=== PATIENT | male | born 1975 | race Caucasian/White ===

== ENCOUNTER 2016-12-30 15:09 | Emergency (ER) | payer MEDICARE, MEDICAID ==
[2016-12-30 15:39] VITALS: BP 136/69
[2016-12-30 16:38] LABS: CHLORIDE,CL 106 mmol/L (98-110); SODIUM,NA 138 mmol/L (136-146)
--- NOTE | 2016-12-30 17:46 | EDM.PDOC ---
ED HPI GENERAL MEDICAL PROBLEM - General Chief Complaint: Cardiovascular Problem Stated Complaint: HEART MONITOR Time Seen by Provider: 12/30/16 15:45 Source of Information: Reports: Patient History Limitations: Reports: No Limitations - History of Present Illness INITIAL COMMENTS - FREE TEXT/NARRATIVE: HISTORY AND PHYSICAL: History of present illness: [31-year-old male with a history of a previous code and an anoxic brain injury who walks with a walker because of his severe disability now presents emergency department to see if his pacemaker defibrillator is working. She is under the care of the food management aide Dr. oneil in [place]. Patient states that his pacemaker has been beeping but he has not been shocked recently. He was concerned that it might not be working since it's been beeping and he has no way to allow his device to be interrogated because he does not have a phone landline. Patient states he has not been shocked recently but is concerned he may have been shocked while he was sleeping. he is currently asymptomatic denies exertional chest pain. No productive cough or fever. Patient has no exertional intolerance beyond his baseline. He feels as he always does he was just worried that his pacemaker is beeping Review of systems: As per history of present illness and below otherwise all systems reviewed and negative. Past medical history: As per history of present illness and as reviewed below otherwise noncontributory. Surgical history: As per history of present illness and as reviewed below otherwise noncontributory. Social history: No reported history of drug or alcohol abuse. Family history: As per history of present illness and as reviewed below otherwise noncontributory. Physical exam: Well-appearing patient no acute distress smiling cheerful alert communicative and cooperative. Supple neck clear lungs regular rate and rhythm nontender abdomen normal extremities. Patient has his baseline hobbling gait for which he uses a walker. HEENT: Atraumatic, normocephalic, pupils reactive, negative for conjunctival pallor or scleral icterus, mucous membranes moist, throat clear, neck supple, nontender, trachea midline. Lungs: Clear to auscultation, breath sounds equal bilaterally, chest nontender. Heart: S1S2, regular, negative for clicks, rubs, or JVD. Abdomen: Soft, nondistended, nontender. Negative for masses or hepatosplenomegaly. Negative for costovertebral tenderness. Pelvis: Stable nontender. Genitourinary: Deferred. Rectal: Deferred. Extremities: Atraumatic, negative for cords or calf pain. Neurovascular unremarkable. Neuro: Awake, alert, oriented. Cranial nerves II through XII unremarkable. Cerebellum unremarkable. Motor and sensory unremarkable throughout. Exam nonfocal. Diagnostics: [EKG with atrial sensed ventricular paced rhythm at 72 right axis deviation no STEMI interpreted by me Chest x-ray with left-sided pacer in place with leads appear continuous and appropriately positioned. Chronic changes no acute disease interpreted by me] Therapeutics: [] Impression: [Normally functioning pacemaker ]Cardiac arrhythmia December 27 Plan: [Patient with a history of severe cardiac problems with a pacemaker defibrillator in place. Interrogated in the emergency department and found to have been working effectively however was beeping to report some events which most recently occurred on the and 27 of December. Patient is asymptomatic over the last few days and does not remember being shocked. He feels this may have happened while he was sleeping. He is on multiple cardiac meds. Workup today unremarkable. Except showing subtherapeutic digoxin level. Patient states he has been compliant. Case discussed with patient's food management aide Dr. oneil who is intimately familiar with his case is aware the history and findings including the recent events. This food management aide discuss the results the interrogation with the pacemaker reuse technician was present in the ED and did a full formal interrogation. I also spoke with him and his recommendation was to remind the patient to critical importance of complete compliance with his medication regimen. Dr. cobb felt that no further interventions or medication changes were indicated at this time and states he and his office staff will contact the patient tomorrow regarding further follow- up. Patient continues to be asymptomatic as his been for several days. No further workup or treatment indicated. Patient agrees with outpatient follow-up and strict return precautions given Definitive disposition and diagnosis as appropriate pending reevaluation and review of above. - Related Data Allergies Allergy/AdvReac Type Severity Reaction Status Date / Time Penicillins Allergy Hives Verified 12/30/16 15:36 Home Meds: Home Meds Aspirin [Daysi Chewable Aspirin] 81 mg PO DAILY 05/23/14 [History] Carvedilol 25 mg PO BID 05/23/14 [History] Digoxin 0.125 mcg PO DAILY 05/23/14 [History] Furosemide [Lasix] 20 mg PO BID 05/23/14 [History] Amiodarone [Cordarone] 200 mg DAILY 12/30/16 [History] Lisinopril 5 mg BID 12/30/16 [History] Past Medical History - Past Health History Medical/Surgical History: Denies Medical/Surgical History HEENT History: Reports: None Cardiovascular History: Reports: Arrhythmia, Pacemaker Respiratory History: Reports: None Gastrointestinal History: Reports: None Genitourinary History: Reports: None Musculoskeletal History: Reports: None Neurological History: Reports: None Psychiatric History: Reports: None Endocrine/Metabolic History: Reports: None Hematologic History: Reports: None Oncologic (Cancer) History: Reports: None Dermatologic History: Reports: None - Infectious Disease History Infectious Disease History: Reports: None - Past Surgical History Head Surgeries/Procedures: Reports: None Cardiovascular Surgical History: Reports: AICD Male Surgical History: Reports: None Social & Family History - Tobacco Use Smoking Status *Q: Current Some Day Smoker Years of Tobacco use: 10 Packs/Tins Daily: 0.2 Used Tobacco, but Quit: No Second Hand Smoke Exposure: No - Caffeine Use Caffeine Use: Reports: None - Alcohol Use Days Per Week of Alcohol Use: 1 Number of Drinks Per Day: 1 Total Drinks Per Week: 1 - Recreational Drug Use Recreational Drug Use: No ED ROS GENERAL - Review of Systems Review Of Systems: See Below (History of present illness) ED EXAM, GENERAL - Physical Exam Exam: See Below (History of present illness) Course - Vital Signs Last Recorded V/S: Last Vital Signs Temp 36.6 C 12/30/16 15:38 Pulse 70 12/30/16 18:06 Resp 18 12/30/16 18:06 BP 136/69 12/30/16 15:38 Pulse Ox 96 12/30/16 18:06 - Orders/Labs/Meds Orders: Active Orders 24 hr Category Date Time Status EKG 12 Lead [EKG Documentation Completion] [RC] STAT Care 12/30/16 15:40 Active Chest 2V [CR] Stat Exams 12/30/16 15:38 Taken Labs: Laboratory Tests 12/30/16 12/30/16 12/30/16 Range/Units 16:13 16:13 16:13 WBC 7.66 (4.0-11.0) K/uL RBC 5.00 (4.50-5.90) M/uL Hgb 16.0 (13.0-17.0) g/dL Hct 46.0 (38.0-50.0) % MCV 92.0 (80.0-98.0) fL MCH 32.0 (27.0-32.0) pg MCHC 34.8 (31.0-37.0) g/dL RDW Std Deviation 43.2 (28.0-62.0) fl RDW Coeff of Joana 13 (11.0-15.0) % Plt Count 238 (150-400) K/uL MPV 11.80 (7.40-12.00) fL Neut % (Auto) 61.0 (48.0-80.0) % Lymph % (Auto) 28.3 (16.0-40.0) % [place] % (Auto) 8.2 (0.0-15.0) % Eos % (Auto) 2.1 (0.0-7.0) % Baso % (Auto) 0.4 (0.0-1.5) % Neut # (Auto) 4.7 (1.4-5.7) K/uL Lymph # (Auto) 2.2 (0.6-2.4) K/uL [place] # (Auto) 0.6 (0.0-0.8) K/uL Eos # (Auto) 0.2 (0.0-0.7) K/uL Baso # (Auto) 0.0 (0.0-0.1) K/uL Nucleated RBC % 0.0 /100WBC Nucleated RBCs # 0 K/uL Sodium 138 (136-146) mmol/L Potassium 4.4 (3.5-5.1) mmol/L Chloride 106 (98-110) mmol/L Carbon Dioxide 22 (21-31) mmol/L BUN 15 (6.0-23.0) mg/dL Creatinine 1.1 (0.6-1.5) mg/dL Est Cr Clr Drug Dosing 95.04 mL/min Estimated GFR (MDRD) > 60.0 ml/min Glucose 113 H (60-110) mg/dL Calcium 9.5 (8.8-10.8) mg/dL Troponin I < 0.10 (0.0-0.29) NG/ML Digoxin (0.8-2.0) ng/mL 12/30/16 Range/Units 16:13 WBC (4.0-11.0) K/uL RBC (4.50-5.90) M/uL Hgb (13.0-17.0) g/dL Hct (38.0-50.0) % MCV (80.0-98.0) fL MCH (27.0-32.0) pg MCHC (31.0-37.0) g/dL RDW Std Deviation (28.0-62.0) fl RDW Coeff of Joana (11.0-15.0) % Plt Count (150-400) K/uL MPV (7.40-12.00) fL Neut % (Auto) (48.0-80.0) % Lymph % (Auto) (16.0-40.0) % [place] % (Auto) (0.0-15.0) % Eos % (Auto) (0.0-7.0) % Baso % (Auto) (0.0-1.5) % Neut # (Auto) (1.4-5.7) K/uL Lymph # (Auto) (0.6-2.4) K/uL [place] # (Auto) (0.0-0.8) K/uL Eos # (Auto) (0.0-0.7) K/uL Baso # (Auto) (0.0-0.1) K/uL Nucleated RBC % /100WBC Nucleated RBCs # K/uL Sodium (136-146) mmol/L Potassium (3.5-5.1) mmol/L Chloride (98-110) mmol/L Carbon Dioxide (21-31) mmol/L BUN (6.0-23.0) mg/dL Creatinine (0.6-1.5) mg/dL Est Cr Clr Drug Dosing mL/min Estimated GFR (MDRD) ml/min Glucose (60-110) mg/dL Calcium (8.8-10.8) mg/dL Troponin I (0.0-0.29) NG/ML Digoxin 0.60 L (0.8-2.0) ng/mL Meds: Medications Discontinued Medications Generic Name Dose Route Start Last Admin Trade Name Freq PRN Reason Stop Dose Admin Digoxin 125 mcg 12/31/16 09:00 Lanoxin PO DAILY FLORA Digoxin Confirm 12/30/16 18:01 12/30/16 18:06 Lanoxin Administered 12/30/16 18:02 125 mcg Dose Administration 125 mcg .ROUTE .STK-MED ONE Departure - Departure Time of Disposition: 17:42 Disposition: Home, Self-Care 01 Condition: Good Clinical Impression: Cardiac arrhythmia, Normally functioning cardiac pacemaker present Instructions: Pacemaker Implantation, Care After Referrals: PCP,None [Primary Care Provider] - Forms: ED Department Discharge Additional Instructions: Your pacemaker defibrillator is functioning normally. The results of your pacemaker evaluation were discussed by the pacemaker customer contact representative with your food management aide Dr Oneil. I also spoke with him about your recent events and he recommended that you continue your medications exactly as prescribed and follow- up with him in the office as an outpatient. His office staff will contact you tomorrow regarding further follow-up and treatment. Be sure to continue your medication regimen exactly as prescribed. Follow-up your primary care doctor tomorrow as well. Return immediately for new severe or worsening symptoms - My Orders Last 24 Hours: My Active Orders 12/30/16 15:38 Chest 2V [CR] Stat 12/30/16 15:40 EKG 12 Lead [EKG Documentation Completion] [RC] STAT - Assessment/Plan Last 24 Hours: My Active Orders 12/30/16 15:38 Chest 2V [CR] Stat 12/30/16 15:40 EKG 12 Lead [EKG Documentation Completion] [RC] STAT
[2016-12-30] MEDS ORDERED: Digoxin 125 MCG Tab ONE (18:01)
[2016-12-31] MEDS ORDERED: Digoxin 125 MCG Tab PO SCH (09:00)
--- NOTE | 2016-12-31 10:25 | CR ---
EXAM DATE: 12/30/16 PATIENT'S AGE: 41 Patient: NELLY LORENZ Facility: [place], [place] Site . Site : 1975 Study: XRay Chest [id number]/28/2017 4:30:10 PM Ordering Physician: Doctor Hagan Final Report: INDICATION: Alarm on pacemaker has been going on for a few days. No chest pain or shortness of breath TECHNIQUE: Chest 2 views. COMPARISON: None FINDINGS: Cardiovascular and mediastinum: Heart size and vasculature are normal in caliber and appearance. Mediastinum is within normal limits. A left-sided transvenous pacer device with no obvious hardware abnormalities. Lungs and pleural spaces: Lungs are clear. No sign of infiltrate or mass. No sign of pleural effusion. No pneumothorax. Bones and soft tissues: No significant findings. IMPRESSION: Dual lead left-sided transvenous pacing device with no obvious hardware abnormality. No acute pulmonary or cardiac abnormalities. Dictated by Dom Kapoor MD @ 12/30/2016 5:03:24 PM Dictated by: Dom Kapoor MD @ 12/30/2016 17:03:31 (Electronic Signature) Report Signed by Proxy. CHANCE
== END 2016-12-30 18:05 | disposition home or self-care (01) ==
LOC: MW.ED 15:09
DX: I49.9 Cardiac arrhythmia, unspecified (principal); F17.210 Nicotine dependence, cigarettes, uncomplicated; Z88.0 Allergy status to penicillin; Z79.82 Long term (current) use of aspirin; Z79.899 Other long term (current) drug therapy; Z95.0 Presence of cardiac pacemaker
CPT/HCPCS: 36415; 71020; 80048; 80162; 84484; 85025; 93005; 99284; A9270; 99283

== ENCOUNTER 2017-09-01 20:34 | Emergency (ER) | payer MEDICARE, MEDICAID ==
--- NOTE | 2017-09-01 20:44 | EDM.PDOC ---
ED HPI GENERAL MEDICAL PROBLEM - General Chief Complaint: Lower Extremity Injury/Pain Stated Complaint: LEFT ANKLE SWOLLEN FROM A FALL Time Seen by Provider: 09/01/17 20:42 Source of Information: Reports: Patient History Limitations: Reports: No Limitations - History of Present Illness INITIAL COMMENTS - FREE TEXT/NARRATIVE: HISTORY AND PHYSICAL: History of present illness: Patient is a 42-year-old male who presents to the emergency room via ground ambulance after tripping and falling hurting his left foot. Patient has a history of MS and does use a walker for ambulation. He states he was going towards the blinds when his foot got stuck resulting in him tripping and falling. He has increased pain with weightbearing. Review of systems: As per history of present illness and below otherwise all systems reviewed and negative. Past medical history: As per history of present illness and as reviewed below otherwise noncontributory. Surgical history: As per history of present illness and as reviewed below otherwise noncontributory. Social history: No reported history of drug or alcohol abuse. Family history: As per history of present illness and as reviewed below otherwise noncontributory. Physical exam: General: HEENT: Atraumatic, normocephalic, pupils equal and reactive bilaterally, negative for conjunctival pallor or scleral icterus, mucous membranes moist, throat clear, neck supple, nontender, trachea midline. No drooling or trismus noted. No meningeal signs Lungs: Clear to auscultation, breath sounds equal bilaterally, chest nontender. Heart: S1S2, regular rate and rhythm without overt murmur Abdomen: Soft, nondistended, nontender. Negative for masses or hepatosplenomegaly. Negative for costovertebral tenderness. Pelvis: Stable nontender. Genitourinary: Deferred. Rectal: Deferred. Skin: Intact, warm, dry. No lesions or rashes noted. Extremities: Pain with weight bearing to the left foot. Soft tissue swelling noted to this extremitiy. Storng pedal pulses. Cap refill less He is negative for cords or calf pain. Neurovascular unremarkable. Neuro: Awake, alert, oriented. Cranial nerves II through XII unremarkable. Cerebellum unremarkable. Motor and sensory unremarkable throughout. Exam nonfocal. Notes: X-ray shows fracture deformities of the proximal left second and third metatarsal. Second metatarsal fracture is likely comminuted. Probable subluxation/disruption across again, third and possibly fourth tarsometatarsal joints. Obvious soft tissue swelling. I did consult or so as I do not have anyone available in podiatry at this moment. Dr. Thorpe was consulted and discussed this case with him. He is agreeable the patient should have a cam walker boot and placed in a wheelchair as he does not feel he can ambulate with the walker he normally uses. He will follow-up with the sorting machine operator or ortho next week. Patient is requesting a wheelchair as he states that she has difficulty ambulating with his walker due to his MS. Trae chavez was insulted and we will provide this patient with a wheelchair. Follow-up information was given for the patient. We'll prescribe some tramadol for nighttime use. Diagnostics: Xray Therapeutics: Ice, CAM walker boot, Wheelchair (through med/quest) Impression: Metatarsal fracture, left Plan: 1. Rest, ice, elevate the affected extremity. Use the cam walker boot continue to be non-weightbearing. You may use the walker to transfer from seat to seat; otherwise please use the wheelchair that has been prescribed for you. 2. Tylenol and/or ibuprofen as needed for pain management. Tramadol may be used for moderate to severe pain. This medication may cause drowsiness a do not take it will driving her needing to be functioning outside of the house. 3. Please call tomorrow to set up an appointment with podiatry (preferred). If the sorting machine operator (preferred) is unavailable you may follow up with the orthopedic clinic. Please see them next week. Definitive disposition and diagnosis as appropriate pending reevaluation and review of above. Onset: Today Duration: Minutes: Location: Reports: Lower Extremity, Left Left Lower Feet Pain Score (Numeric/FACES): 3 - Related Data Allergies Allergy/AdvReac Type Severity Reaction Status Date / Time Penicillins Allergy Hives Verified 09/01/17 20:38 Home Meds: Home Meds Aspirin [Daysi Chewable Aspirin] 81 mg PO DAILY 05/23/14 [History] Carvedilol 25 mg PO BID 05/23/14 [History] Digoxin 0.125 mcg PO DAILY 05/23/14 [History] Furosemide [Lasix] 20 mg PO BID 05/23/14 [History] Amiodarone [Cordarone] 200 mg DAILY 12/30/16 [History] Lisinopril 5 mg BID 12/30/16 [History] Potassium Chloride 1 tab DAILY 09/01/17 [History] Past Medical History - Past Health History Medical/Surgical History: Denies Medical/Surgical History HEENT History: Reports: None Cardiovascular History: Reports: Arrhythmia, Pacemaker Respiratory History: Reports: None Gastrointestinal History: Reports: None Genitourinary History: Reports: None Musculoskeletal History: Reports: None Neurological History: Reports: None Psychiatric History: Reports: None Endocrine/Metabolic History: Reports: None Hematologic History: Reports: None Oncologic (Cancer) History: Reports: None Dermatologic History: Reports: None - Infectious Disease History Infectious Disease History: Reports: None - Past Surgical History Head Surgeries/Procedures: Reports: None Cardiovascular Surgical History: Reports: AICD Male Surgical History: Reports: None Social & Family History - Caffeine Use Caffeine Use: Reports: None Review of Systems - Review of Systems Review Of Systems: ROS reveals no pertinent complaints other than HPI. ED EXAM, GENERAL - Physical Exam Exam: See Below (See dictation) Course - Vital Signs Last Recorded V/S: Last Vital Signs Temp 97.6 F 09/01/17 20:35 Pulse 90 09/01/17 20:35 Resp 18 09/01/17 20:35 BP 124/77 09/01/17 20:35 Pulse Ox 95 09/01/17 20:35 - Orders/Labs/Meds Orders: Active Orders 24 hr Category Date Time Status Foot 2V Lt [CR] Stat Exams 09/01/17 20:43 Ordered Departure - Departure Time of Disposition: 21:33 Disposition: Home, Self-Care 01 Clinical Impression: Metatarsal fracture Qualifiers: Encounter type: initial encounter Metatarsal bone: second Fracture type: closed Fracture alignment: nondisplaced Laterality: left Qualified Code(s): S92.325A - Nondisplaced fracture of second metatarsal bone, left foot, initial encounter for closed fracture - Discharge Information Forms: ED Department Discharge Additional Instructions: The following information is given to patients seen in the emergency department who are being discharged to home. This information is to outline your options for follow-up care. We provide all patients seen in our emergency department with a follow-up referral. The need for follow-up, as well as the timing and circumstances, are variable depending upon the specifics of your emergency department visit. If you don't have a primary care physician on staff, we will provide you with a referral. We always advise you to contact your personal physician following an emergency department visit to inform them of the circumstance of the visit and for follow-up with them and/or the need for any referrals to a consulting specialist. The emergency department will also refer you to a specialist when appropriate. This referral assures that you have the opportunity for follow-up care with a specialist. All of these measure are taken in an effort to provide you with optimal care, which includes your follow-up. Under all circumstances we always encourage you to contact your private physician who remains a resource for coordinating your care. When calling for follow-up care, please make the office aware that this follow-up is from your recent emergency room visit. If for any reason you are refused follow-up, please contact the [facility] Emergency Department at and asked to speak to the emergency department charge nurse. Dr Cosme [facility] [address] [place] [id number] [facility] Specialty Care - Orthopedic Clinic Professional [facility] [address] [place] [address], [address] [place] [address] 1. Rest, ice, elevate the affected extremity. Use the CAM walker boot continue to be non-weightbearing. You may use the walker to transfer from seat to seat; otherwise please use the wheelchair that has been prescribed for you. 2. Tylenol and/or ibuprofen as needed for pain management. Tramadol may be used for moderate to severe pain. This medication may cause drowsiness a do not take it will driving her needing to be functioning outside of the house. 3. Please call tomorrow to set up an appointment with podiatry (preferred). If the sorting machine operator (preferred) is unavailable you may follow up with the orthopedic clinic. Please see them next week. - My Orders Last 24 Hours: My Active Orders 09/01/17 20:43 Foot 2V Lt [CR] Stat - Assessment/Plan Last 24 Hours: My Active Orders 09/01/17 20:43 Foot 2V Lt [CR] Stat
[2017-09-01] MEDS ORDERED: traMADol 50 MG Tab PO ONE (21:36)
[2017-09-01 22:07] VITALS: BP 112/58
--- NOTE | 2017-09-02 17:12 | CR ---
EXAM DATE: 09/01/17 PATIENT'S AGE: 42 Patient: NELLY LORENZ Facility: [place], [place] Site . Site : 1975 Study: XRay Extremity Left foot [id number]/31/2018 8:57:03 PM Ordering Physician: Doctor Hagan Final Report: INDICATION: Trauma. TECHNIQUE: Two views the left foot. FINDINGS: There are fracture deformities of the proximal left 2nd and 3rd metatarsals. The fracture of the proximal 2nd metatarsal may be comminuted. Typically, at least 3 views are obtained particularly in post trauma type cases. An oblique view of the foot is usually quite helpful. Dorsal soft tissue swelling. IMPRESSION: 1. Fracture deformities of the proximal left 2nd and 3rd metatarsals. The 2nd metatarsal fracture is likely comminuted. 2. Probable subluxation/disruption across the 2nd and 3rd and possibly 4th tarsometatarsal joints. 3. Obvious soft tissue swelling dorsally. Dictated by Nelly Page MD @ Sep 01 2017 9:07PM (Electronic Signature) Report Signed by Proxy. CHANCE
== END 2017-09-01 22:35 | disposition home or self-care (01) ==
LOC: MW.ED 20:34
DX: S92.325A Nondisplaced fracture of second metatarsal bone, left foot, initial encounter for closed fracture (principal); S92.332A Displaced fracture of third metatarsal bone, left foot, initial encounter for closed fracture; Z88.0 Allergy status to penicillin; Z79.899 Other long term (current) drug therapy; W01.0XXA Fall on same level from slipping, tripping and stumbling without subsequent striking against object, initial encounter
CPT/HCPCS: 73620-26-LT; 73620-LT; 99284